=== PATIENT | male | born 1945 | race Caucasian/White ===

== ENCOUNTER 2020-03-20 08:08 | Day surgery (SDC) | payer OTHER ==
[~2020-03-20] VITALS: Ht 167.6 cm; Wt 122.4 kg
[~2020-03-20 08:08] MED LIST: ASPI81EC PO; Aspir 8181 MG PO; BIO T PRES-B L473 ML; DIPH50 PO; DOXA2 PO; DULO30 PO; FAMO20 PO; FINA5 PO; HYDPAM50 PO; LISI20 PO; METO50 PO; MULTIPLE VITAM1 EACH PO; Multivitamin1 EAC1 PO; OMEP20ER PO; OMEPRAZOLE MAGN20 MG PO; PRAV20 PO; PRED10 PO; TICA90TA PO; Triamcinolone A15 G3; Triamcinolone A15 G3 TOP
--- NOTE | 2020-03-20 09:23 | NUR ---
03/20/20 0923 Roxi Foley IV- 1ST INFILTRATED, 2ND DID NOT GET ACCESS. TMG
== END 2020-03-20 11:09 | disposition home or self-care (01) ==
LOC: ORSCSDS 08:08
PROVIDERS: Ophthalmology
PROC: 08RJ3JZ Replacement of Right Lens with Synthetic Substitute, Percutaneous Approach (ICD-10-PCS; principal; 2020-03-20 09:30)
DX: H25.11 Age-related nuclear cataract, right eye (principal); I10 Essential (primary) hypertension; I25.10 Atherosclerotic heart disease of native coronary artery without angina pectoris; G47.33 Obstructive sleep apnea (adult) (pediatric); K21.9 Gastro-esophageal reflux disease without esophagitis; E11.9 Type 2 diabetes mellitus without complications; N40.0 Benign prostatic hyperplasia without lower urinary tract symptoms; E66.01 Morbid (severe) obesity due to excess calories; Z68.41 Body mass index [BMI] 40.0-44.9, adult; Z79.899 Other long term (current) drug therapy
CPT/HCPCS: 82947; J2001; J2250; J3010; J3301; J7040; V2632

== ENCOUNTER 2020-04-10 08:30 | Day surgery (SDC) | payer OTHER ==
[~2020-04-10] VITALS: Ht 167.6 cm; Wt 121.5 kg
[~2020-04-10 08:30] MED LIST changes: +Aspirin EC81 MG PO; +TRIA15CR3 TOP
== END 2020-04-10 11:02 | disposition home or self-care (01) ==
LOC: ORSCSDS 08:30
PROVIDERS: Ophthalmology
PROC: 08RK3JZ Replacement of Left Lens with Synthetic Substitute, Percutaneous Approach (ICD-10-PCS; principal; 2020-04-10 10:00)
DX: H25.12 Age-related nuclear cataract, left eye (principal); H21.81 Floppy iris syndrome; I10 Essential (primary) hypertension; I25.10 Atherosclerotic heart disease of native coronary artery without angina pectoris; G47.33 Obstructive sleep apnea (adult) (pediatric); N18.9 Chronic kidney disease, unspecified; E11.9 Type 2 diabetes mellitus without complications; E66.01 Morbid (severe) obesity due to excess calories; Z68.41 Body mass index [BMI] 40.0-44.9, adult; Z79.4 Long term (current) use of insulin; Z79.82 Long term (current) use of aspirin; Z79.899 Other long term (current) drug therapy
CPT/HCPCS: 82947; J2001; J2250; J3010; J3301; V2632

== ENCOUNTER 2021-04-19 09:36 | Emergency (ER) | payer OTHER ==
[~2021-04-19] VITALS: Ht 167.6 cm; Wt 127.0 kg
== END 2021-04-19 12:22 | disposition home or self-care (01) ==
LOC: ER 09:36
DX: S90.821A Blister (nonthermal), right foot, initial encounter (principal); E11.40 Type 2 diabetes mellitus with diabetic neuropathy, unspecified; I10 Essential (primary) hypertension; K21.9 Gastro-esophageal reflux disease without esophagitis; Z79.82 Long term (current) use of aspirin; Z79.899 Other long term (current) drug therapy; Z88.8 Allergy status to other drugs, medicaments and biological substances; Z87.891 Personal history of nicotine dependence; X58.XXXA Exposure to other specified factors, initial encounter
CPT/HCPCS: 93971; 99283-25

== ENCOUNTER → 2022-06-03 | Outpatient (CLI) | payer OTHER ==
[2022-06-05 15:15] LABS: Adenovirus F 40/41 Not Detected (NOT DETECT); Astrovirus Not Detected (NOT DETECT); Campylobacter Sp Not Detected (NOT DETECT); Cryptosporidium Not Detected (NOT DETECT); Cyclospora Cayetanensis Not Detected (NOT DETECT); E. Coli O157 Not Detected (NOT DETECT); Entamoeba Histolytica Not Detected (NOT DETECT); Enteroaggregative E. coli-EAEC Not Detected (NOT DETECT); Enteropathogenic E. coli-EPEC Detected (NOT DETECT); Enterotoxigenic E. coli-ETEC Not Detected (NOT DETECT); Giardia Lamblia Not Detected (NOT DETECT); Norovirus GI/GII Not Detected (NOT DETECT); Plesiomonas Shigelloides Not Detected (NOT DETECT); Rotavirus A Not Detected (NOT DETECT); Salmonella Sp Not Detected (NOT DETECT); Sapovirus Not Detected (NOT DETECT); Shiga Toxin-prod E. coli-STEC Not Detected (NOT DETECT); Shigella/Enteroin E. coli-EIEC Not Detected (NOT DETECT); Vibrio Cholerae Not Detected (NOT DETECT); Vibrio Sp Not Detected (NOT DETECT); Yersinia Enterocolitica Not Detected (NOT DETECT)
== END | disposition home or self-care (01) ==
LOC: LAB SHORT 11:30
PROVIDERS: Physician Assistant Medical
DX: R19.7 Diarrhea, unspecified (principal)
CPT/HCPCS: 87507

== ENCOUNTER → 2022-06-05 | Outpatient (CLI) | payer OTHER | END | disposition home or self-care (01) | LOC: LAB 11:15 → LAB SHORT 11:15 | DX: R19.7 Diarrhea, unspecified (principal) | CPT/HCPCS: 82653 ==

== ENCOUNTER 2023-07-13 13:17 | Inpatient (IN) | payer OTHER ==
[~2023-07-13] VITALS: Ht 167.6 cm; Wt 119.3 kg
[2023-07-13 13:37] LABS: Base Excess Venous 0.1 mmol/L; Bicarbonate Venous 24.5 mmol/L (24.0-30.0); PCO2 Venous 38.4 mmHg (38-42); pH Blood Venous 7.42 (7.34-7.37)
[2023-07-13 13:48] LABS: BASOPHILS ABSOLUTE AUTO 0.06 K/mm3 (0.00-0.23); BASOPHILS PERCENT AUTO 1 % (0-2); EOSINOPHILS ABSOLUTE AUTO 0.24 K/mm3 (0.00-0.68); EOSINOPHILS PERCENT AUTO 2 % (0-6); Hematocrit 47.6 % (37.0-53.0); Hemoglobin 16.2 g/dL (13.5-17.5); IMMATURE GRAN ABSOLUTE AUTO 0.04 K/mm3 (0.00-0.10); IMMATURE GRAN PERCENT AUTO 0 % (0-1); LYMPHOCYTES ABSOLUTE AUTO 0.52 K/mm3 (0.84-5.20); LYMPHOCYTES PERCENT AUTO 5 % (21-46); MONOCYTES ABSOLUTE AUTO 1.01 K/mm3 (0.16-1.47); MONOCYTES PERCENT AUTO 10 % (4-13); Mean Corpuscular HGB 28.4 pg (26.0-34.0); Mean Corpuscular Volume 84 fL (80-100); Mean Platelet Volume 9.4 fL (9.1-12.4); NEUTROPHILS ABSOLUTE AUTO 8.48 K/mm3 (1.96-9.15); NEUTROPHILS PERCENT AUTO 82 % (41-73); Platelet Count 206 K/mm3 (150-400); RDW Coefficient Variation 15.3 % (11.7-14.2); RDW Standard Deviation 45.6 fL (35.1-46.3); White Blood Cell Count 10.35 K/mm3 (4.00-11.30)
[2023-07-13 14:05] LABS: Albumin, Blood 3.7 g/dL (3.4-5.0); Bilirubin, Total 0.8 mg/dL (0.1-1.0); Bun/Creatinine Ratio 16.5 (12.0-20.0); Calcium, Blood 8.9 mg/dL (8.5-10.1); Creatinine, Blood 1.03 mg/dL (0.60-1.20); Globulin, Blood 3.6 g/dL (2.2-4.0); Potassium, Blood 4.5 mmol/L (3.5-5.5); Total Protein, Blood 7.3 g/dL (6.4-8.2)
[2023-07-13 15:32] LABS: Adenovirus Not Detected (NOT DETECT); Coronavirus 229E Not Detected (NOT DETECT); Coronavirus HKU1 Not Detected (NOT DETECT); Coronavirus NL63 Not Detected (NOT DETECT); Coronavirus OC43 Not Detected (NOT DETECT); Human Metapneumovirus Not Detected (NOT DETECT); Human Rhinovirus/Enterovirus Not Detected (NOT DETECT); Influenza A/2009-H1 Detected (NOT DETECT); Influenza A/H1 Not Detected (NOT DETECT); Influenza A/H3 Not Detected (NOT DETECT); SARS-Cov-2 (COVID-19), BioFire Not Detected (NOT DETECT)
[2023-07-13 15:33] LABS: Bordetella pertussis Not Detected (NOT DETECT); Chlamydophila pneumoniae Not Detected (NOT DETECT); Influenza B Not Detected (NOT DETECT); Mycoplasma pneumoniae Not Detected (NOT DETECT); Parainfluenza Virus 1 Not Detected (NOT DETECT); Parainfluenza Virus 2 Not Detected (NOT DETECT); Parainfluenza Virus 3 Not Detected (NOT DETECT); Parainfluenza Virus 4 Not Detected (NOT DETECT); Respiratory Syncytial Virus Not Detected (NOT DETECT)
[2023-07-13 16:29] LABS: Source, Urine Straight Cath
[2023-07-13 16:37] LABS: Appearance, Urine Clear (Clear); Bilirubin, Urine Neg (Neg); Blood, Urine Neg (Neg); Color, Urine Yellow (P-Yellow); Glucose Qualitative, Urine Neg (Neg); Ketones, Urine Neg (Neg); Leukocyte Esterase, Urine Neg (Neg); Nitrite, Urine Neg (Neg); Protein, Urine Neg (Neg); Urobilinogen, Urine NORM (Normal); pH, Urine 6.5 (5.0-8.0)
[2023-07-13 17:18] VITALS: BP 143/77
[2023-07-13] MEDS ORDERED: GABA100 PO (18:22)
[2023-07-13] MEDS ORDERED: METF500 PO (18:23)
--- NOTE | 2023-07-13 18:36 | NUR ---
THE PATIENT IS JUST ADMITTED AND IS SLEEPING AT THIS TIME, HIS SPOUSE IS IN THE ROOM WITH HIM. I WILL CONTINUE TO MONITOR HIM
[2023-07-13 20:09] VITALS: BP 143/70
[2023-07-14 02:16] VITALS: BP 142/83
--- NOTE | 2023-07-14 05:14 | NUR ---
SHIFT SUMMARY NOC PT A/O X 3. PLEASANT AND COOPERATIVE WITIH CARE. RT SET UP CPAP FOR PT SLEEP. PT HAS LR INFUSING @ 100 ML/HR X 1 BAG. PT HAS BEEN INC OF URINE X 4. URGE IS THERE BUT USUALLY TOO LATE TO MAKE IT TO BATHROOM.. PT IS CURRENTLY RESTING WITH BED IN LOWEST POSITION, AND CALL LIGHT WITHIN REACH.
[2023-07-14 05:33] LABS: BASOPHILS ABSOLUTE AUTO 0.04 K/mm3 (0.00-0.23); BASOPHILS PERCENT AUTO 1 % (0-2); EOSINOPHILS ABSOLUTE AUTO 0.02 K/mm3 (0.00-0.68); EOSINOPHILS PERCENT AUTO 0 % (0-6); Hematocrit 43.5 % (37.0-53.0); Hemoglobin 14.7 g/dL (13.5-17.5); IMMATURE GRAN ABSOLUTE AUTO 0.03 K/mm3 (0.00-0.10); IMMATURE GRAN PERCENT AUTO 0 % (0-1); LYMPHOCYTES ABSOLUTE AUTO 0.68 K/mm3 (0.84-5.20); LYMPHOCYTES PERCENT AUTO 9 % (21-46); MONOCYTES ABSOLUTE AUTO 1.18 K/mm3 (0.16-1.47); MONOCYTES PERCENT AUTO 16 % (4-13); Mean Corpuscular HGB 28.3 pg (26.0-34.0); Mean Corpuscular HGB Conc 33.8 g/dL (31.5-36.5); Mean Corpuscular Volume 84 fL (80-100); Mean Platelet Volume 9.2 fL (9.1-12.4); NEUTROPHILS ABSOLUTE AUTO 5.59 K/mm3 (1.96-9.15); NEUTROPHILS PERCENT AUTO 74 % (41-73); Platelet Count 190 K/mm3 (150-400); RDW Coefficient Variation 15.5 % (11.7-14.2); RDW Standard Deviation 46.3 fL (35.1-46.3); White Blood Cell Count 7.54 K/mm3 (4.00-11.30)
[2023-07-14 05:57] LABS: Magnesium, Blood 2.1 mg/dL (1.6-2.4)
[2023-07-14 06:54] LABS: Albumin, Blood 3.3 g/dL (3.4-5.0); Bilirubin, Total 0.8 mg/dL (0.1-1.0); Bun/Creatinine Ratio 13.3 (12.0-20.0); Creatinine, Blood 1.05 mg/dL (0.60-1.20); Globulin, Blood 3.4 g/dL (2.2-4.0); Total Protein, Blood 6.7 g/dL (6.4-8.2)
[2023-07-14 08:22] VITALS: BP 155/82
[2023-07-14 14:06] LABS: Potassium, Blood 3.9 mmol/L (3.5-5.5)
--- NOTE | 2023-07-14 20:05 | NUR ---
SHIFT SUMMARY PT RESTING QUIETLY AT START OF SHIFT. WOKE EASILY FOR CARE. PT IS MORE ORIENTED TODAY, PER REPORT, BUT ALSO HAS SOME BASELINE DEMENTIA. PT UP TO CHAIR AT BS A COUPLE OF TIMES. UP WITH THERAPY WELL. MOSTLY INCONTINENT OF URINE. DID USE URINAL ONCE OR TWICE AFTER INCONTINCE. CALLED TO CK ON PT AND LATER IN TO VISIT A COUPLE OF TIMES. POSSIBLE D/C TOMORROW. PT C/O NEUROPATHY PAIN IN FEET THIS EVENING. REPORTING PT TAKES HOME MED GABAPENTIN TID. DR OCASIO NOTIFIED; NEW ORDERS PLACED. ORDER FOR O/T MINI MENTAL EVAL FOR EARLY AM PLACED. PT ASSISTED BACK INTO BED FROM CHAIR PRIOR TO LEAVING FOR NIGHT. PT RESTING QUIETLY AT THIS TIME. BED ALARM ON FOR SAFETY. CALL LT IN REACH.
[2023-07-15 03:26] VITALS: BP 185/96
--- NOTE | 2023-07-15 05:13 | NUR ---
SHIFT SUMMARY PT IS A&O2-3 SOME MILD CONFUSION TO PLACE OVERNIGHT, 1 ASSIST WITH FWW, RA, VSS, NO COMPLAINTS OF PAIN OVERNIGHT, NO ACUTE EVENTS THIS SHIFT, CONTINUE POC
[2023-07-15 08:20] VITALS: BP 149/111
--- NOTE | 2023-07-15 11:24 | NUR ---
PT WORKING WITH PATIENT, DR OCASIO DISCHARGED PATIENT WITH HOME HEALTH, PATIENT PASSED THE COGNITIVE TEST WITHOUT ANY DEFICIT. PATIENT REPORTS HE IS READY TO GO HOME AND WILL BE HAPPY IF HE GETS TOO, CALL LIGHT WITH IN REACH, VERY RARE COUGH, PATIENT COVERS MOUTH
[2023-07-15] MEDS ORDERED: OSEL75CA PO (12:40)
--- NOTE | 2023-07-15 14:05 | NUR ---
1347 DISCHARGE VIA W/C, PATIENT SHOWERED PRIOR TO DISCHARGE, DISCHARGE INSTRUCTIONS GIVEN TO PATIENT AND , BOTH STATED UNDERSTANDING, MEDICATIONS, AND FOLLOW UP NEEDS.
[2023-07-16 08:12] LABS: HBSAG SCREEN Negative (Negative); HCV AB Non Reactive (Non Reactive); HEP A AB, IGM Negative (Negative); HEP B CORE AB, IGM Negative (Negative)
== END 2023-07-15 13:50 | disposition home health service (06) | DRG 193 ==
LOC: ER 13:17 → MEDS 13:18
PROVIDERS: Emergency Medicine; Student in an Organized Health Care Education/Training Program; ADMIT Student in an Organized Health Care Education/Training Program
PROC: 3E02340 Introduction of Influenza Vaccine into Muscle, Percutaneous Approach (ICD-10-PCS; 2023-07-13)
PROC: 5A09357 Assistance with Respiratory Ventilation, Less than 24 Consecutive Hours, Continuous Positive Airway Pressure (ICD-10-PCS; principal; 2023-07-14)
DX: J10.1 Influenza due to other identified influenza virus with other respiratory manifestations (principal); G92.8 Other toxic encephalopathy; R53.1 Weakness; G47.33 Obstructive sleep apnea (adult) (pediatric); I10 Essential (primary) hypertension; E11.9 Type 2 diabetes mellitus without complications; K21.9 Gastro-esophageal reflux disease without esophagitis; E66.9 Obesity, unspecified; I25.10 Atherosclerotic heart disease of native coronary artery without angina pectoris; W19.XXXA Unspecified fall, initial encounter; Z20.822 Contact with and (suspected) exposure to COVID-19; Z79.899 Other long term (current) drug therapy; Z79.82 Long term (current) use of aspirin; Z98.890 Other specified postprocedural states; Z95.5 Presence of coronary angioplasty implant and graft; Z88.8 Allergy status to other drugs, medicaments and biological substances; Z98.42 Cataract extraction status, left eye; Z98.41 Cataract extraction status, right eye; Z87.891 Personal history of nicotine dependence; Z68.34 Body mass index [BMI] 34.0-34.9, adult; Z99.89 Dependence on other enabling machines and devices
CPT/HCPCS: 0202U; 36415; 70450; 71046; 76705; 80053; 80074; 81003; 82140; 82803; 82947; 83690; 83735; 83880; 84484; 85025; 93005; 93010; 94660; 94762; 96372; 97110; 97116; 97129; 97162; 97165; 97535; 99285-25; A9270; G0008; G0378; J1650; J7030; J7120; Q2036